=== PATIENT | male | born 1960 | race Caucasian/White ===

== ENCOUNTER 2017-01-18 18:32 | Inpatient (IN) | payer OTHER, MEDICAID ==
[~2017-01-18] VITALS: Ht 175.3 cm; Wt 129.0 kg
[2017-01-18 20:45] VITALS: BP 161/76
[2017-01-19] MEDS ORDERED: ONDANSETRON 2MG/ML, 2ML IVPush PRN (00:30)
[2017-01-19] MEDS: morphine SULFATE 60 MG TABLET.ER PO SCH ×2 (00:30→12:30)
[2017-01-19] MEDS: ENOXAPARIN 120MG/0.8ML SQ SCH ×2 (01:16→12:30)
[2017-01-19 02:03] VITALS: BP 167/76
[2017-01-19 02:29] VITALS: BP 159/111
[2017-01-19 02:33] VITALS: BP 152/107
[2017-01-19] MEDS: LEVOTHYROXINE 100 MCG TABLET PO SCH (05:28)
[2017-01-19] MEDS: LOSARTAN 50MG TABLET PO SCH (05:29)
[2017-01-19] MEDS: OXYcodone IR 5MG TABLET PO PRN ×4 (05:29→21:35)
[2017-01-19 08:32] VITALS: BP 149/99
[2017-01-19] MEDS: FINASTERIDE 5 MG TABLET PO SCH (08:36)
[2017-01-19] MEDS: TAMSULOSIN 0.4 MG CAP.ER.24H PO SCH (08:36)
[2017-01-19 12:56] VITALS: BP 128/85
[2017-01-19] MEDS: MORPHINE SULFATE 4 MG/ML, 1ML IVPush PRN (18:20)
[2017-01-19 19:47] VITALS: BP 101/64
[2017-01-19] MEDS: WARFARIN 7.5 MG TABLET PO-COUM SCH (21:35)
[2017-01-20] MEDS: ENOXAPARIN 120MG/0.8ML SQ SCH ×2 (00:30→12:29)
[2017-01-20] MEDS: morphine SULFATE 60 MG TABLET.ER PO SCH ×2 (00:30→12:29)
[2017-01-20 00:56] VITALS: BP 133/91
[2017-01-20] MEDS: MORPHINE SULFATE 4 MG/ML, 1ML IVPush PRN ×4 (04:22→21:02)
[2017-01-20 05:51] LABS: BLOOD UREA NITROGEN 4 mg/dL (7-18)
[2017-01-20] MEDS: LEVOTHYROXINE 100 MCG TABLET PO SCH (06:24)
[2017-01-20 07:30] VITALS: BP 118/80
[2017-01-20] MEDS: FINASTERIDE 5 MG TABLET PO SCH (09:17)
[2017-01-20] MEDS: TAMSULOSIN 0.4 MG CAP.ER.24H PO SCH (09:17)
[2017-01-20] MEDS: LOSARTAN 50MG TABLET PO SCH (09:17)
[2017-01-20 12:46] VITALS: BP 124/84
[2017-01-20] MEDS ORDERED: FLUCONAZOLE 400 MG/200 ML 200 ML IV ONE (14:30)
[2017-01-20] MEDS: LIDOCAINE 2% VISCOUS 15 ML UDC MM SCH ×2 (16:00→21:00)
[2017-01-20] MEDS: WARFARIN 7.5 MG TABLET PO-COUM SCH (18:16)
[2017-01-20 19:32] VITALS: BP 128/88
[2017-01-21] MEDS: ENOXAPARIN 120MG/0.8ML SQ SCH ×2 (00:30→13:35)
[2017-01-21] MEDS: morphine SULFATE 60 MG TABLET.ER PO SCH ×2 (01:13→13:34)
[2017-01-21] MEDS: MORPHINE SULFATE 4 MG/ML, 1ML IVPush PRN ×4 (03:08→20:06)
[2017-01-21 03:19] VITALS: BP 141/96
[2017-01-21] MEDS: ASPIRIN 81 MG TABLET EC PO SCH ×2 (06:00→06:35)
[2017-01-21] MEDS: LEVOTHYROXINE 100 MCG TABLET PO SCH (06:35)
[2017-01-21 06:56] VITALS: BP 126/87
[2017-01-21] MEDS: LIDOCAINE 2% VISCOUS 15 ML UDC MM SCH ×3 (09:00→21:00)
[2017-01-21] MEDS: LOSARTAN 50MG TABLET PO SCH (09:21)
[2017-01-21] MEDS: FINASTERIDE 5 MG TABLET PO SCH (09:21)
[2017-01-21] MEDS: TAMSULOSIN 0.4 MG CAP.ER.24H PO SCH (09:21)
[2017-01-21 13:21] VITALS: BP 148/92
[2017-01-21] MEDS: WARFARIN 7.5 MG TABLET PO-COUM SCH (18:04)
[2017-01-21 18:35] VITALS: BP 135/87
[2017-01-22] MEDS: ENOXAPARIN 120MG/0.8ML SQ SCH ×2 (00:30→12:30)
[2017-01-22] MEDS: morphine SULFATE 60 MG TABLET.ER PO SCH ×2 (00:37→01:24)
[2017-01-22 01:38] VITALS: BP 138/95
[2017-01-22] MEDS: MORPHINE SULFATE 4 MG/ML, 1ML IVPush PRN ×4 (04:31→19:57)
[2017-01-22] MEDS: LEVOTHYROXINE 100 MCG TABLET PO SCH (06:32)
[2017-01-22 07:48] VITALS: BP 126/94
[2017-01-22] MEDS: LIDOCAINE 2% VISCOUS 15 ML UDC MM SCH ×3 (09:00→19:56)
[2017-01-22] MEDS: LOSARTAN 50MG TABLET PO SCH (09:02)
[2017-01-22] MEDS: TAMSULOSIN 0.4 MG CAP.ER.24H PO SCH (09:02)
[2017-01-22] MEDS: FINASTERIDE 5 MG TABLET PO SCH (09:02)
[2017-01-22 13:40] VITALS: BP 137/88
[2017-01-22] MEDS: WARFARIN 7.5 MG TABLET PO-COUM SCH (18:36)
[2017-01-22 18:47] VITALS: BP 142/94
[2017-01-23] MEDS: ENOXAPARIN 120MG/0.8ML SQ SCH ×2 (00:25→12:30)
[2017-01-23] MEDS: MORPHINE SULFATE 4 MG/ML, 1ML IVPush PRN ×3 (03:30→15:56)
[2017-01-23 03:34] VITALS: BP 126/83
[2017-01-23] MEDS: ASPIRIN 81 MG TABLET EC PO SCH (05:15)
[2017-01-23] MEDS: LEVOTHYROXINE 100 MCG TABLET PO SCH (05:16)
[2017-01-23 07:49] VITALS: BP 141/99
[2017-01-23] MEDS: LIDOCAINE 2% VISCOUS 15 ML UDC MM SCH ×2 (09:00→16:00)
[2017-01-23] MEDS: FINASTERIDE 5 MG TABLET PO SCH (09:37)
[2017-01-23] MEDS: TAMSULOSIN 0.4 MG CAP.ER.24H PO SCH (09:37)
[2017-01-23] MEDS: LOSARTAN 50MG TABLET PO SCH (09:37)
[2017-01-23] MEDS ORDERED: OXYC5TAB3 PO (14:20)
[2017-01-23] MEDS ORDERED: ASPI-621 PO (14:20)
[2017-01-23] MEDS ORDERED: LEVO100T PO (14:20)
[2017-01-23] MEDS ORDERED: LOSA50TA2 PO (14:20)
[2017-01-23] MEDS ORDERED: WARF7.5T PO-COUM (14:20)
[2017-01-23] MEDS ORDERED: FINA5TAB4 PO (14:20)
[2017-01-23] MEDS ORDERED: SIMV40TA PO (14:33)
[2017-01-23 15:48] VITALS: BP 133/96
== END 2017-01-23 17:30 | DRG 175 ==
LOC: ED 19:41 → EDIP 19:45 → 4EST 20:38
PROVIDERS: ADMIT Internal Medicine; ATTEND Internal Medicine
DX: I26.99 Other pulmonary embolism without acute cor pulmonale (principal); J96.01 Acute respiratory failure with hypoxia; I82.401 Acute embolism and thrombosis of unspecified deep veins of right lower extremity; I50.22 Chronic systolic (congestive) heart failure; D68.59 Other primary thrombophilia; B37.81 Candidal esophagitis; Z68.41 Body mass index [BMI] 40.0-44.9, adult; Z66 Do not resuscitate; J44.9 Chronic obstructive pulmonary disease, unspecified; G89.29 Other chronic pain; I25.10 Atherosclerotic heart disease of native coronary artery without angina pectoris; E66.01 Morbid (severe) obesity due to excess calories; E03.9 Hypothyroidism, unspecified; N40.0 Benign prostatic hyperplasia without lower urinary tract symptoms; I11.0 Hypertensive heart disease with heart failure; Z90.49 Acquired absence of other specified parts of digestive tract; Z86.711 Personal history of pulmonary embolism; Z85.038 Personal history of other malignant neoplasm of large intestine; Z93.3 Colostomy status; Z86.73 Personal history of transient ischemic attack (TIA), and cerebral infarction without residual deficits; Z95.5 Presence of coronary angioplasty implant and graft; Z99.81 Dependence on supplemental oxygen
CPT/HCPCS: 36415; 80048; 84443; 85025; 85610; 93306; 93970; 99291; J1450; J1650

== ENCOUNTER 2017-01-29 00:42 | Observation (INO) | payer MEDICAID, MEDICARE, OTHER ==
[~2017-01-29] VITALS: Ht 175.3 cm; Wt 128.8 kg
[~2017-01-29 00:42] MED LIST: ASPI-621 PO; FINA5TAB4 PO; LEVO100T PO; LOSA50TA2 PO; OXYC5TAB3 PO; SIMV40TA PO; WARF7.5T PO-COUM
[2017-01-29] MEDS ORDERED: SODIUM CHLORIDE FLUSH 10ML SYR IVF ONE (01:00)
[2017-01-29] MEDS ORDERED: MORPHINE SULFATE 4 MG/ML, 1ML IVPush PRN (01:00)
[2017-01-29] MEDS ORDERED: SODIUM CHLORIDE 0.9% 1,000ML IVBOLUS ONE (01:00)
[2017-01-29] MEDS ORDERED: ONDANSETRON 2MG/ML, 2ML IVPush ONE (01:00)
[2017-01-29] MEDS ORDERED: ONDANSETRON 2MG/ML, 2ML ONE (01:11)
[2017-01-29] MEDS ORDERED: MORPHINE SULFATE 4 MG/ML, 1ML ONE (01:11)
[2017-01-29 02:13] LABS: BLOOD UREA NITROGEN 13 mg/dL (7-18)
[2017-01-29 02:18] LABS: ASPARTATE AMINO TRANSFERASE 34 U/L (15-37)
[2017-01-29 02:19] LABS: IS PT STATUS REG ER OR PRE ER? YES
[2017-01-29] MEDS ORDERED: ONDANSETRON ODT 4 MG PO PRN (03:00)
[2017-01-29] MEDS ORDERED: DOCUSATE 100 MG CAPSULE PO PRN (03:00)
[2017-01-29] MEDS ORDERED: POLYETHYLENE GLYCOL 17 GM PACKET PO PRN (03:00)
[2017-01-29] MEDS ORDERED: LORazepam 1MG TABLET PO PRN (03:00)
[2017-01-29] MEDS ORDERED: BISACODYL 10 MG SUPP PR PRN (03:00)
[2017-01-29] MEDS ORDERED: LABETALOL 5MG/ML, 20ML IVPush PRN (03:00)
[2017-01-29] MEDS ORDERED: ATORVASTATIN 80 MG TABLET PO SCH (03:00)
[2017-01-29] MEDS ORDERED: ACETAMINOPHEN 325 MG TABLET PO PRN (03:00)
[2017-01-29 03:04] VITALS: BP 151/89
[2017-01-29] MEDS: OXYcodone IR 5MG TABLET PO PRN ×4 (03:47→16:39)
[2017-01-29] MEDS: SODIUM CHLORIDE 0.9% 1,000 ML IV SCH ×2 (03:47→12:25)
[2017-01-29] MEDS ORDERED: ASPIRIN 81 MG TABLET EC PO SCH (06:00)
[2017-01-29] MEDS ORDERED: LEVOTHYROXINE 100 MCG TABLET PO SCH (06:00)
[2017-01-29 08:09] LABS: IS PT STATUS REG ER OR PRE ER? NO
[2017-01-29 08:15] VITALS: BP 155/94
[2017-01-29] MEDS ORDERED: LORazepam 2 MG/ML, 1ML IVPush ONE (08:30)
[2017-01-29] MEDS ORDERED: FINASTERIDE 5 MG TABLET PO SCH (09:00)
[2017-01-29] MEDS ORDERED: LOSARTAN 50MG TABLET PO SCH (09:00)
[2017-01-29] MEDS ORDERED: REGADENOSON 0.4 MG/5 ML SYRINGE ONE (10:26)
[2017-01-29 12:15] VITALS: BP 169/109
[2017-01-29 14:36] LABS: IS PT STATUS REG ER OR PRE ER? NO
[2017-01-29 15:50] VITALS: BP 172/115
[2017-01-29 16:38] VITALS: BP 154/100
[2017-01-29] MEDS ORDERED: WARFARIN 7.5 MG TABLET PO-COUM SCH (18:00)
[2017-01-29] MEDS ORDERED: WARFARIN 7.5 MG TABLET PO-COUM ONE (18:00)
== END 2017-01-29 20:20 | disposition home or self-care (01) ==
LOC: ED 01:46 → INTOOBSV 02:12 → EDIP 02:12 → 4EST 02:59 → 5SO 07:22
PROVIDERS: ADMIT Internal Medicine; ATTEND Internal Medicine
DX: R07.89 Other chest pain (principal); I26.99 Other pulmonary embolism without acute cor pulmonale; R09.02 Hypoxemia; G47.33 Obstructive sleep apnea (adult) (pediatric); I11.0 Hypertensive heart disease with heart failure; I25.10 Atherosclerotic heart disease of native coronary artery without angina pectoris; I50.42 Chronic combined systolic (congestive) and diastolic (congestive) heart failure; J44.9 Chronic obstructive pulmonary disease, unspecified; G47.419 Narcolepsy without cataplexy; E78.5 Hyperlipidemia, unspecified; E66.01 Morbid (severe) obesity due to excess calories; E03.9 Hypothyroidism, unspecified; N40.0 Benign prostatic hyperplasia without lower urinary tract symptoms; Z85.038 Personal history of other malignant neoplasm of large intestine; Z86.73 Personal history of transient ischemic attack (TIA), and cerebral infarction without residual deficits; Z90.49 Acquired absence of other specified parts of digestive tract; Z95.5 Presence of coronary angioplasty implant and graft; Z99.81 Dependence on supplemental oxygen
CPT/HCPCS: 36415; 70450; 71010; 72146; 72148; 78452; 80053; 84484; 85025; 85610; 93005; 93017; 96361; 96374; 96375; 99285; A9502; C9898; G0378; J2060; J2405; J2785; J7030; 96360; 96376